=== PATIENT | female | born 1955 | race Caucasian/White ===

== ENCOUNTER → 2018-04-16 | Outpatient (CLI) | payer OTHER ==
[~2018-04-16] MED LIST: ESTR.05PBW; LANS15EC
== END | disposition home or self-care (01) ==
LOC: PLD 07:59 → LAB SHORT 07:59
DX: D22.5 Melanocytic nevi of trunk (principal)
CPT/HCPCS: 88305

== ENCOUNTER 2019-02-14 08:52 | Day surgery (SDC) | payer OTHER ==
[~2019-02-14] VITALS: Ht 160 cm; Wt 93.9 kg
[~2019-02-14 08:52] MED LIST changes: +Estradiol1 MG PO; +HYDCHL25 PO; +PSEU120ER PO; +claritin PO
--- NOTE | 2019-02-14 09:15 | NUR ---
Ambulatory in Day Surgery History, Chart, Medications and Allergies reviewed before start of procedure.Lungs clear T/O to Auscultation. Patient confirms NPO status and agrees with scheduled surgery. Patient reports completing Chlorhexadine shower X2 prior to admission to hospital.Patient States Post-Procedure ride home has been arranged.
--- NOTE | 2019-02-14 11:02 | NUR ---
02/14/19 1102 Carlos Alvarado NO ANTIBIOTIC NEEDED CONFIRMED BY DR. WILLIS X2
--- NOTE | 2019-02-14 17:57 | NUR ---
summary patient ambulated in room and sat up in chair. tolerating regular diet without nausea. patient has denied need for pin medication. scant bloody drainage on dora pad.
[2019-02-15 05:01] LABS: BASOPHILS ABSOLUTE AUTO 0.02 K/mm3 (0.00-0.23); BASOPHILS PERCENT AUTO 0 % (0-2); EOSINOPHILS ABSOLUTE AUTO 0.02 K/mm3 (0.00-0.68); EOSINOPHILS PERCENT AUTO 0 % (0-6); Hematocrit 41.9 % (33.0-51.0); Hemoglobin 13.8 g/dL (11.5-16.0); IMMATURE GRAN ABSOLUTE AUTO 0.03 K/mm3 (0.00-0.10); IMMATURE GRAN PERCENT AUTO 0 % (0-1); LYMPHOCYTES ABSOLUTE AUTO 2.34 K/mm3 (0.84-5.20); LYMPHOCYTES PERCENT AUTO 24 % (21-46); MONOCYTES ABSOLUTE AUTO 0.54 K/mm3 (0.16-1.47); MONOCYTES PERCENT AUTO 6 % (4-13); Mean Corpuscular HGB 28.8 pg (26.0-34.0); Mean Corpuscular HGB Conc 32.9 g/dL (31.5-36.5); Mean Corpuscular Volume 88 fL (80-100); Mean Platelet Volume 10.7 fL (9.1-12.4); NEUTROPHILS ABSOLUTE AUTO 6.65 K/mm3 (1.96-9.15); NEUTROPHILS PERCENT AUTO 69 % (41-73); Platelet Count 222 K/mm3 (150-400); RDW Coefficient Variation 12.5 % (11.7-14.2); RDW Standard Deviation 40.4 fL (35.1-46.3); Red Blood Cell Count 4.79 M/mm3 (3.80-5.20)
--- NOTE | 2019-02-15 06:35 | NUR ---
SUMMARY NO ACUTE CHANGES NOTED THROUGH THE NIGHT. PT IS TOLERATING PO INTAKE. PAIN MANAGED WITH TORADOL. HERNANDEZ CATH REMOVED THIS AM WNL, PT ENCOURAGED TO CALL PRIOR TO VOIDING. URINE HAT PLACED IN TOILET. VAGINAL PACKING REMOVED, MODERATE AMOUNT OF BROWN/RED BLOOD NOTED. PT ENCOURAGED TO CALL IF BLEEDING INCREASED. PT HAS A ROSE PAD IN PLACE. WCTM. CALL LIGHT IN REACH.
--- NOTE | 2019-02-15 14:30 | NUR ---
DISCHARGE PT PROVIDED WITH WRITTEN AND VERBAL DISCHARGE INSTRUCTIONS. SHE REPORTED UNDERSTANDING AFTER QUESTIONS WERE ANSWERED. PT ESCORTED OUT IN W/C BY HAN RABAGO.
== END 2019-02-15 14:00 | disposition home or self-care (01) ==
LOC: ORSCMMR 08:52 → PRE IP 10:45 → SURS 13:17 → ORSCMMR 02-15 14:00
PROVIDERS: Obstetrics & Gynecology
PROC: 0JQC0ZZ Repair Pelvic Region Subcutaneous Tissue and Fascia, Open Approach (ICD-10-PCS; principal; 2019-02-14 10:45)
DX: N81.6 Rectocele (principal); N81.10 Cystocele, unspecified; J45.909 Unspecified asthma, uncomplicated; K21.9 Gastro-esophageal reflux disease without esophagitis; E66.01 Morbid (severe) obesity due to excess calories; Z68.36 Body mass index [BMI] 36.0-36.9, adult; Z79.899 Other long term (current) drug therapy
CPT/HCPCS: 36415; 85025; J1100; J1885; J2250; J2405; J2710; J2765; J3010; J7120

== ENCOUNTER 2021-11-29 10:36 | Day surgery (SDC) | payer OTHER ==
[~2021-11-29] VITALS: Ht 160 cm; Wt 85.4 kg
== END 2021-11-29 12:39 | disposition home or self-care (01) ==
LOC: ORSCSDS 10:36
PROVIDERS: Student in an Organized Health Care Education/Training Program
PROC: 0DBP8ZX Excision of Rectum, Via Natural or Artificial Opening Endoscopic, Diagnostic (ICD-10-PCS; principal; 2021-11-29 12:00)
PROC: 0DBM8ZX Excision of Descending Colon, Via Natural or Artificial Opening Endoscopic, Diagnostic (ICD-10-PCS; principal; 2021-11-29 12:00)
DX: R19.7 Diarrhea, unspecified (principal); D12.4 Benign neoplasm of descending colon; K52.9 Noninfective gastroenteritis and colitis, unspecified; K57.30 Diverticulosis of large intestine without perforation or abscess without bleeding; K64.8 Other hemorrhoids; I10 Essential (primary) hypertension; Z86.010 Personal history of colon polyps; K21.9 Gastro-esophageal reflux disease without esophagitis; J45.909 Unspecified asthma, uncomplicated; Z79.899 Other long term (current) drug therapy
CPT/HCPCS: 88305; J2704; J7120

== ENCOUNTER → 2023-07-11 | Outpatient (CLI) | payer SELFPAY | LOC: LAB SHORT 11:48 → LAB 11:48 → PLD 11:48 | DX: C44.619 Basal cell carcinoma of skin of left upper limb, including shoulder (principal) | CPT/HCPCS: 88305 ==